=== PATIENT | female | born 1945 | race Caucasian/White ===

== ENCOUNTER 2024-06-28 12:09 | Inpatient (IN) ==
[2024-06-28] MEDS ORDERED: Ondansetron 4 mg VIAL 2 MG/ML 2 ml VIAL IV PRN (13:07)
[2024-06-28 13:34] LABS: ABS Eosinophils 0.1 10^3/uL (0.0-0.5); ABS Lymphocytes 1.3 10^3/uL (1.0-4.8); ABS Monocytes 0.7 10^3/uL (0.0-0.9); ABS Neutrophils 6.6 10^3/uL (1.5-7.6); Eosinophil % 0.6 %; Hematocrit 34.1 % (35-45); Hemoglobin 10.8 g/dL (11.5-14.3); Lymphocyte % 14.8 %; Mean Corpuscular Hemoglobin 28.7 pg (27-33); Mean Corpuscular Hgb Conc 31.6 g/dL (31-36); Mean Corpuscular Volume 90.9 fL (80-97); Mean Platelet Volume 9.9 fL (7.5-11.2); Platelet Count 327 10^3/uL (150-450); Red Blood Count 3.75 10^6/uL (3.63-4.92); Red Cell Distribution Width 15.6 % (12-17); White Blood Count 8.7 10^3/uL (3.8-11.8)
[2024-06-28 13:51] LABS: Albumin/Globulin Ratio 0.6 (1-3); Globulin 5.3 g/dL (2-4); Potassium 4.3 mmol/L (3.5-5.0); Total Bilirubin 2.8 mg/dL (0.2-1.0); Total Protein 8.3 g/dL (6.4-8.9); eGFR CKD-EPI 57.7 (>60)
[2024-06-28] MEDS: NS 0.9% 1000 ml BAG 1,000 ML IV SCH (15:42)
[2024-06-28] MEDS ORDERED: Albuterol HFA INHALER 8 gm MDI INH PRN (16:54)
[2024-06-28 17:44] LABS: Calcium (PTH Intact) 11.5 mg/dL (8.6-10.3)
[2024-06-28 17:58] LABS: Uric Acid 5.7 mg/dL (2.3-6.6)
[2024-06-28] MEDS: Enoxaparin 40 MG/0.4 ML SYR SUBCUT SCH (18:03)
[2024-06-28] MEDS: Zoledronic Acid 4 MG in NS 0.9% 100 ml BAG 100 ML IVPB ONE (18:12)
[2024-06-28 18:43] LABS: Vitamin D Total 25(OH) 34.6 ng/mL (20-50)
[2024-06-29 07:03] LABS: ABS Eosinophils 0.1 10^3/uL (0.0-0.5); ABS Lymphocytes 1.1 10^3/uL (1.0-4.8); ABS Monocytes 0.4 10^3/uL (0.0-0.9); ABS Neutrophils 3.4 10^3/uL (1.5-7.6); Eosinophil % 1.4 %; Hematocrit 26.8 % (35-45); Hemoglobin 8.8 g/dL (11.5-14.3); Lymphocyte % 22.1 %; Mean Corpuscular Hemoglobin 30.2 pg (27-33); Mean Corpuscular Hgb Conc 32.9 g/dL (31-36); Mean Corpuscular Volume 91.8 fL (80-97); Nucleated Red Blood Cells % 0.1 %/100WBC (0.0-0.8); Platelet Count 198 10^3/uL (150-450); Red Blood Count 2.91 10^6/uL (3.63-4.92); Red Cell Distribution Width 16.2 % (12-17); White Blood Count 5.1 10^3/uL (3.8-11.8)
[2024-06-29 07:19] LABS: Albumin 2.7 g/dL (3.5-5.7); Albumin/Globulin Ratio 0.8 (1-3); Calcium 9.5 mg/dL (8.6-10.3); Creatinine, Serum 0.86 mg/dL (0.51-0.95); Globulin 3.4 g/dL (2-4); Potassium 4.1 mmol/L (3.5-5.0); Total Bilirubin 2.1 mg/dL (0.2-1.0); Total Protein 6.1 g/dL (6.4-8.9); eGFR CKD-EPI 69.1 (>60)
[2024-06-29] MEDS: Magnesium Sulf 4 GM/100 ML IV 4,000 MG/100 ML BAG IVPB ONE (09:14)
[2024-06-29] MEDS: Mometasone 220 MCG MDI INH SCH (10:02)
[2024-06-29 10:20] VITALS: BP 121/51
== END 2024-06-29 14:20 | disposition home health service (06) | DRG 641 ==
LOC: CHOA 12:09 → MEDTELE 14:49
PROVIDERS: ADMIT Internal Medicine Hematology & Oncology; ATTEND Student in an Organized Health Care Education/Training Program